=== PATIENT | male | born 1965 | race Caucasian/White ===

== ENCOUNTER 2020-08-04 02:14 | Emergency (ER) | payer SELFPAY ==
[~2020-08-04] VITALS: Ht 167.6 cm; Wt 74.8 kg
[2020-08-04 02:26] VITALS: BP 129/84
--- NOTE | 2020-08-04 02:30 | NUR ---
PATIENT PRESENTS TO ED WITH SOB . PT STATES HE HAS CURRENT PNA AND HIS O2 LEVELS DROP. DENIES N/V/D; SKIN IS PINK/WARM/DRY; AAOX4 WITH EVEN AND STEADY GAIT; LUNGS CLEAR BL; HR EVEN AND REGULAR; PT DENIES ANY FEVER, CP, SOB, OR COUGH AT THIS TIME; PATIENT STATES PAIN OF 0/10 AT THIS TIME; VSS; PATIENT POSITIONED FOR COMFORT; HOB ELEVATED; BEDRAILS UP X2; BED DOWN. ER MD MADE AWARE OF PT STATUS.
[2020-08-04] MEDS ORDERED: LIDOCAINE MPF 1% 5 ML ONE (04:26)
[2020-08-04] MEDS ORDERED: cefTRIAXone 1,000 MG VIAL ONE (04:26)
--- NOTE | 2020-08-04 04:40 | NUR ---
EKG COMPLETED BY EMT
--- NOTE | 2020-08-04 04:45 | NUR ---
RT ADMIN BREATHING TX
[2020-08-04] MEDS: ALBUTEROL SULFATE/IPRATROPIU 3 ML SOL IH ONE (04:56)
--- NOTE | 2020-08-04 05:01 | NUR ---
LABS DRAWN AND TAKEN TO LAB
[2020-08-04] MEDS: DEXAMETHASONE 4 MG/ML VIAL IM ONE (05:02)
[2020-08-04] MEDS: cefTRIAXone 1,000 MG in LIDOCAINE MPF 1% 2.1 ML IM ONE (05:02)
[2020-08-04 05:55] LABS: ALBUMIN 3.4 g/dL (3.4-5.0); ANION GAP 18.3 (8-16); CARBON DIOXIDE 21.9 mmol/L (21-32); CREATININE 1.1 mg/dL (0.6-1.3); POTASSIUM 4.2 mmol/L (3.5-5.1); TOTAL BILIRUBIN 0.4 mg/dL (0.0-1.0)
[2020-08-04 06:55] LABS: BASOPHILS % (AUTO) 0.3 % (0.0-2.0); EOSINOPHILS % (AUTO) 0.4 % (0.0-4.0); HEMATOCRIT 42.8 % (36-52); HEMOGLOBIN 14.7 g/dL (12.0-18.0); LYMPHOCYTES # (AUTO) 0.9 K/uL (2.0-11.5); LYMPHOCYTES % (AUTO) 8.6 % (20.5-51.1); MEAN CORPUSCULAR HEMOGLOBIN 31 pg (27-31); MEAN CORPUSCULAR HGB CONC 34 g/dL (33-37); MEAN CORPUSCULAR VOLUME 90.3 fL (80-94); MONOCYTES # (AUTO) 0.3 K/uL (0.8-1.0); MONOCYTES % (AUTO) 2.8 % (1.7-9.3); NEUTROPHILS # (AUTO) 8.8 K/uL (1.8-7.7); NEUTROPHILS % (AUTO) 87.9 % (42.2-75.2); PLATELET COUNT (AUTO) 486 K/uL (140-450); RED BLOOD CELL COUNT(AUTO) 4.74 MIL/uL (4.20-6.10); RED CELL DISTRIBUTION WIDTH 12.6 % (11.6-13.7)
--- NOTE | 2020-08-04 07:24 | NUR ---
Assumed care of pt at this time.
[2020-08-04 07:30] VITALS: BP 130/80
--- NOTE | 2020-08-04 07:30 | NUR ---
Patient discharged with v/s stable. Written and verbal after care instructions given and explained. Patient alert, oriented and verbalized understanding of instructions. Ambulatory with steady gait. All questions addressed prior to discharge. ID band removed. Patient advised to follow up with PMD. Rx of Augmentin 875mg, Prednisone 20mg, Albuterol Sulfate 1.25mg/3ml given. Patient educated on indication of medication including possible reaction and side effects. Opportunity to ask questions provided and answered.
== END 2020-08-04 07:30 | disposition home or self-care (01) ==
LOC: MED 02:14
DX: U07.1 COVID-19 (principal); J12.89 Other viral pneumonia
CPT/HCPCS: 36415; 71045; 80053; 84484; 85025; 93005; 94640; 94760; 96372; 99285; J0696; J1100; J2001